=== PATIENT | male | born 1970 | race Two or more races ===

== ENCOUNTER 2024-06-03 12:17 | Inpatient (IN) | payer OTHER ==
[~2024-06-03] VITALS: Ht 185.4 cm; Wt 127.0 kg
--- NOTE | 2024-06-03 14:04 | NUR ---
PACIENTE ALERTA Y ORIENTADO X 3. REFIERE DESDE EL ISAI DOLOR ABDOMINAL, DE EMMA Y SUDORACION. REFIERE FUE ATENDIDO VARIAS VECES VECES EN ER Y TIENE REFERIDO PARA ER DE DRA SHAILESH LEO POR R/O OBSTRUCCION INTESTINAL.
[2024-06-03] MEDS ORDERED: AMOX1TAB5 (14:08)
[2024-06-03] MEDS ORDERED: ZESTORETIC 20-1 EACH (14:08)
[2024-06-03] MEDS ORDERED: ZESTRIL10 M1 (14:08)
[2024-06-03] MEDS ORDERED: DICY20TA PO (14:09)
[2024-06-03] MEDS ORDERED: 0.9 % SODIUM CHLORIDE 1,000 ML IV SCH ×2 (14:30→19:30)
--- NOTE | 2024-06-03 15:44 | NUR ---
PTE MASCULINO EVALUADO POR . SE ORIENTA SOBRE ORDEN DE TX REFIERE COMPRENDER. SE COLECTAN MUESTRAS DE LABORATORIOS Y SE CANALIZA VENA BAJO MEDIDAS ASEPTICAS. SE ADMINISTRAN LIQUIDOS INTRAVENOSOS, JUANITO ORDEN MEDICA. SE NOTIFICA A RADIOLOGIA ESTUDIO PENDIENTE.
[2024-06-03 15:54] LABS: HEMATOCRIT 44.8 % (39.0-48.0); HEMOGLOBIN 15.5 g/dL (13-16.00); MEAN CELL VOLUME 87.9 fL (80.0-100.00); MEAN CORPUSCULAR HEMOGLOBIN 30.3 pg (27.00-32.0); MEAN CORPUSCULAR HGB CONC 34.5 g/dl (32.0-36.0); PLATELET COUNT 304 K/uL (150-450); RED BLOOD COUNT 5.09 M/uL (4.00-6.00); RED CELL DISTRIBUTION WIDTH 13.5 % (11.5-14.5)
[2024-06-03 16:13] LABS: CALCIUM 9.3 mg/dL (8.5-10.1); CREATININE SERUM 0.75 mg/dL (0.70-1.30); GFR 108.94; POTASSIUM 4.41 mEq/L (3.5-5.1)
[2024-06-03] MEDS ORDERED: FAMOTIDINE/PF 20 MG in 0.9 % SODIUM CHLORIDE 8 ML IV PUSH STA (16:53)
[2024-06-03 16:56] LABS: URINE APPEARANCE Clear; URINE BILIRRUBIN Negative (NEGATIVE); URINE BLOOD Negative; URINE COLOR Yellow; URINE GLUCOSE Negative (NEGATIVE); URINE KETONE Trace (NEGATIVE); URINE LEUKOCYTE Negative; URINE NITRATE Negative
[2024-06-03 16:59] LABS: URINE EPITHELIAL CELLS 3.3 uL (0.0-38.8); URINE RBC 2.4 uL (0.0-20.8); URINE WBC 4.7 uL (0.0-23.2)
[2024-06-03] MEDS ORDERED: PIPERACILLIN/TAZOBACTAM SODIUM 3.375 GM VIAL IV ONE (17:00)
[2024-06-03 17:03] LABS: URINE BACTERIA 2.5 uL (0.0-1933); URINE PROTEIN 100 (NEGATIVE)
[2024-06-03 17:38] LABS: ALBUMIN 2.7 gm/dL (3.4-5.0); BILIRUBIN TOTAL 0.85 mg/dL (0.3-1.2); BILIRUBIN,CONJUGATED 0.31 mg/dL (0.0-0.2); BILIRUBIN,UNCONJUGATED 0.54 mg/dL (0.0-0.6); CALCIUM 8.6 mg/dL (8.5-10.1); CREATININE SERUM 0.68 mg/dL (0.70-1.30); GFR 121.98; GLOBULINA 4.4 G/DL (2.4-3.5); POTASSIUM 3.63 mEq/L (3.5-5.1); TOTAL PROTEIN 7.1 gm/dL (6.4-8.2)
[2024-06-03] MEDS ORDERED: PROMETHAZINE HCL 50 MG/ML AMPUL IM ONE (17:45)
[2024-06-03] MEDS ORDERED: MEPERIDINE HCL/PF 50 MG/ML VIAL IM ONE (17:45)
[2024-06-03] MEDS ORDERED: KETOROLAC TROMETHAMINE 15 MG VIAL IU ONE (19:30)
[2024-06-03] MEDS ORDERED: ACETAMINOPHEN 500 MG GEL..CAP PO PRN (19:45)
[2024-06-03] MEDS ORDERED: ONDANSETRON HCL 4 MG in 0.9 % SODIUM CHLORIDE 50 ML IV PRN (19:45)
[2024-06-03] MEDS ORDERED: MORPHINE SULFATE 4 MG/ML CARTRIDGE IV PRN (19:45)
[2024-06-03 21:28] VITALS: BP 134/86; O2SAT 95
[2024-06-03 21:40] VITALS: BP 135/85
[2024-06-03 21:42] LABS: INR 1.2; PARTIAL THROMBOPLASTIN TIME 29.6 SECONDS (22.0-34.0); PROTHROMBIN TIME 12.9 SECONDS (9.0-11.5)
[2024-06-04] MEDS ORDERED: PIPERACILLIN/TAZOBACTAM SODIUM 3.375 GM in DEXTROSE 5 % IN WATER 100 ML IV SCH
[2024-06-04 00:14] VITALS: BP 130/83; O2SAT 92
[2024-06-04 08:12] LABS: HEMATOCRIT 40.9 % (39.0-48.0); HEMOGLOBIN 14.5 g/dL (13-16.00); MEAN CELL VOLUME 86.2 fL (80.0-100.00); MEAN CORPUSCULAR HEMOGLOBIN 30.6 pg (27.00-32.0); MEAN CORPUSCULAR HGB CONC 35.4 g/dl (32.0-36.0); PLATELET COUNT 261 K/uL (150-450); RED BLOOD COUNT 4.75 M/uL (4.00-6.00); RED CELL DISTRIBUTION WIDTH 13.9 % (11.5-14.5)
[2024-06-04 08:34] LABS: ALBUMIN 2.7 gm/dL (3.4-5.0); BILIRUBIN TOTAL 0.69 mg/dL (0.3-1.2); CALCIUM 8.5 mg/dL (8.5-10.1); CREATININE SERUM 0.64 mg/dL (0.70-1.30); GFR 130.82; GLOBULINA 3.4 G/DL (2.4-3.5); MAGNESIUM 2.2 mg/dL (1.8-2.4); PHOSPHOROUS 3.9 mg/dL (2.5-4.9); POTASSIUM 3.8 mEq/L (3.5-5.1); TOTAL PROTEIN 6.1 gm/dL (6.4-8.2)
[2024-06-04] MEDS ORDERED: LISINOPRIL 20 MG TABLET PO SCH (09:00)
[2024-06-04] MEDS ORDERED: ENOXAPARIN SODIUM 40 MG/0.4 ML SYRINGE SUBCUTANEO SCH (09:00)
[2024-06-04] MEDS ORDERED: FAMOTIDINE/PF 20 MG in 0.9 % SODIUM CHLORIDE 8 ML IV PUSH SCH (09:00)
[2024-06-04] MEDS ORDERED: HYDROCHLOROTHIAZIDE 12.5 MG CAPSULE PO SCH (09:00)
[2024-06-04 09:27] VITALS: BP 132/67; O2SAT 96
[2024-06-04 16:46] VITALS: BP 156/78; O2SAT 98
[2024-06-05] VITALS: BP 148/79; O2SAT 96
[2024-06-05 06:44] LABS: HEMATOCRIT 41.7 % (39.0-48.0); HEMOGLOBIN 14.6 g/dL (13-16.00); MEAN CELL VOLUME 86.9 fL (80.0-100.00); MEAN CORPUSCULAR HEMOGLOBIN 30.5 pg (27.00-32.0); PLATELET COUNT 310 K/uL (150-450); RED CELL DISTRIBUTION WIDTH 13.5 % (11.5-14.5)
[2024-06-05 07:16] LABS: ALBUMIN 2.9 gm/dL (3.4-5.0); CALCIUM 8.6 mg/dL (8.5-10.1); CREATININE SERUM 0.74 mg/dL (0.70-1.30); GFR 110.64; GLOBULINA 3.5 G/DL (2.4-3.5); POTASSIUM 3.94 mEq/L (3.5-5.1); TOTAL PROTEIN 6.4 gm/dL (6.4-8.2)
[2024-06-05] MEDS ORDERED: MOXIFLOXACIN H400 MG PO (10:50)
[2024-06-05] MEDS ORDERED: INTESTINEX680 M1 PO (10:50)
[2024-06-05] MEDS ORDERED: COLACE100 MG PO (10:50)
[2024-06-05] MEDS ORDERED: TRAM1TAB98 PO (10:51)
[2024-06-05] MEDS ORDERED: PANTOPRAZOLE SO20 MG PO (10:51)
[2024-06-05] MEDS ORDERED: HYDROCHLOROTH12.5 MG PO (10:52)
[2024-06-05] MEDS ORDERED: LEVSIN0.125 MG PO (10:52)
[2024-06-05] MEDS ORDERED: LISINOPRIL20 MG PO (10:52)
== END 2024-06-05 13:08 | disposition home or self-care (01) | DRG 446 ==
LOC: ER 12:19 → SURH 20:26
PROVIDERS: Emergency Medicine; General Practice; ADMIT Internal Medicine; ATTEND Internal Medicine
PROC: BW21YZZ Computerized Tomography (CT Scan) of Abdomen and Pelvis using Other Contrast (ICD-10-PCS; principal; 2024-06-03)
PROC: BW40ZZZ Ultrasonography of Abdomen (ICD-10-PCS; 2024-06-03)
PROC: BF37ZZZ Magnetic Resonance Imaging (MRI) of Pancreas (ICD-10-PCS; 2024-06-04)
DX: K80.10 Calculus of gallbladder with chronic cholecystitis without obstruction (principal); I10 Essential (primary) hypertension

== ENCOUNTER 2024-07-29 06:20 | Inpatient (IN) | payer OTHER ==
[2024-07-23 08:50] LABS: URINE APPEARANCE Clear; URINE BILIRRUBIN Negative (NEGATIVE); URINE BLOOD Negative; URINE COLOR Yellow; URINE GLUCOSE Negative (NEGATIVE); URINE KETONE Negative (NEGATIVE); URINE LEUKOCYTE Negative; URINE NITRATE Negative; URINE PROTEIN 30 (NEGATIVE); URINE UROBILINOGEN 0.2 E.U./dl
[2024-07-23 08:54] LABS: URINE EPITHELIAL CELLS 1.5 uL (0.0-38.8); URINE WBC 3.6 uL (0.0-23.2)
[2024-07-23 08:59] LABS: HEMATOCRIT 46.8 % (39.0-48.0); HEMOGLOBIN 16.1 g/dL (13-16.00); MEAN CELL VOLUME 86.3 fL (80.0-100.00); MEAN CORPUSCULAR HEMOGLOBIN 29.7 pg (27.00-32.0); MEAN CORPUSCULAR HGB CONC 34.4 g/dl (32.0-36.0); PLATELET COUNT 246 K/uL (150-450); RED BLOOD COUNT 5.43 M/uL (4.00-6.00); RED CELL DISTRIBUTION WIDTH 13.8 % (11.5-14.5)
[2024-07-23 09:00] LABS: URINE BACTERIA 3.6 uL (0.0-1933)
[2024-07-23 09:11] LABS: INR 1.01; PARTIAL THROMBOPLASTIN TIME 28.8 SECONDS (22.0-34.0)
[2024-07-23 09:57] LABS: ALBUMIN 3.9 gm/dL (3.4-5.0); BILIRUBIN TOTAL 1.01 mg/dL (0.3-1.2); CALCIUM 9.2 mg/dL (8.5-10.1); CREATININE SERUM 0.69 mg/dL (0.70-1.30); GFR 119.94; GLOBULINA 3.6 G/DL (2.4-3.5); POTASSIUM 4.29 mEq/L (3.5-5.1); TOTAL PROTEIN 7.5 gm/dL (6.4-8.2)
[~2024-07-29] VITALS: Ht 185.4 cm; Wt 119.7 kg
[~2024-07-29 06:20] MED LIST: AMOX1TAB5; COLACE100 MG PO; DICY20TA PO; HYDROCHLOROTH12.5 MG PO; INTESTINEX680 M1 PO; LEVSIN0.125 MG PO; LISINOPRIL20 MG PO; MOXIFLOXACIN H400 MG PO; PANTOPRAZOLE SO20 MG PO; TAMS0.4C PO; TRAM1TAB98 PO; ZESTORETIC 20-1 EACH; ZESTRIL10 M1
[2024-07-29] MEDS ORDERED: CEFAZOLIN SODIUM 1,000 MG VIAL ONE (10:21)
[2024-07-29] MEDS ORDERED: ENOXAPARIN SODIUM 40 MG/0.4 ML SYRINGE SUBCUTANEO ONE (10:22)
[2024-07-29] MEDS ORDERED: SUGAMMADEX SODIUM 200 MG/2 ML VIAL IV ONE (11:53)
[2024-07-29] MEDS ORDERED: ONDANSETRON HCL 2 MG/ML VIAL IV PRN (14:45)
[2024-07-29] MEDS ORDERED: RINGERS SOLUTION,LACTATED 1,000 ML IV SCH (14:45)
[2024-07-29] MEDS ORDERED: MORPHINE SULFATE 4 MG/ML VIAL IV PRN (14:45)
[2024-07-29] MEDS ORDERED: FAMOTIDINE/PF 20 MG/2 ML VIAL IV SCH (14:51)
[2024-07-29] MEDS ORDERED: GABAPENTIN 300 MG CAPSULE PO SCH (14:52)
[2024-07-29] MEDS ORDERED: ACETAMINOPHEN 325 MG TABLET PO SCH (14:53)
[2024-07-29] MEDS ORDERED: FAMOTIDINE/PF 20 MG/2 ML VIAL ONE (15:23)
[2024-07-29] MEDS ORDERED: MORPHINE SULFATE 4 MG/ML VIAL IV ONE ×2 (15:45→16:40)
[2024-07-29 16:01] LABS: HEMATOCRIT 48.6 % (39.0-48.0); MEAN CELL VOLUME 85.4 fL (80.0-100.00); MEAN CORPUSCULAR HEMOGLOBIN 29.9 pg (27.00-32.0); MEAN CORPUSCULAR HGB CONC 35.1 g/dl (32.0-36.0); PLATELET COUNT 224 K/uL (150-450)
[2024-07-29 16:15] LABS: CALCIUM 8.9 mg/dL (8.5-10.1); CREATININE SERUM 0.83 mg/dL (0.70-1.30); GFR 96.91; MAGNESIUM 1.7 mg/dL (1.8-2.4); POTASSIUM 4.25 mEq/L (3.5-5.1)
[2024-07-29 16:19] LABS: ALBUMIN 4.1 gm/dL (3.4-5.0); BILIRUBIN TOTAL 0.57 mg/dL (0.3-1.2); CALCIUM 8.8 mg/dL (8.5-10.1); CREATININE SERUM 0.84 mg/dL (0.70-1.30); GFR 95.58; GLOBULINA 3.4 G/DL (2.4-3.5); POTASSIUM 3.97 mEq/L (3.5-5.1); TOTAL PROTEIN 7.5 gm/dL (6.4-8.2)
[2024-07-29 17:30] VITALS: BP 156/77; O2SAT 95
[2024-07-30] VITALS: BP 136/70; O2SAT 95
[2024-07-30 06:52] LABS: HEMATOCRIT 47.1 % (39.0-48.0); HEMOGLOBIN 16.3 g/dL (13-16.00); MEAN CELL VOLUME 85.6 fL (80.0-100.00); MEAN CORPUSCULAR HEMOGLOBIN 29.7 pg (27.00-32.0); MEAN CORPUSCULAR HGB CONC 34.6 g/dl (32.0-36.0); PLATELET COUNT 226 K/uL (150-450); RED CELL DISTRIBUTION WIDTH 13.5 % (11.5-14.5)
[2024-07-30 07:17] LABS: ALBUMIN 3.2 gm/dL (3.4-5.0); CALCIUM 8.6 mg/dL (8.5-10.1); CREATININE SERUM 0.65 mg/dL (0.70-1.30); GFR 128.5; MAGNESIUM 1.6 mg/dL (1.8-2.4); POTASSIUM 3.74 mEq/L (3.5-5.1)
[2024-07-30 08:00] VITALS: BP 142/76; O2SAT 96
[2024-07-30] MEDS ORDERED: MAGNESIUM SULFATE IN WATER 4 GM/100 ML PIGGYBACK IV SCH (08:30)
[2024-07-30] MEDS ORDERED: LISINOPRIL 20 MG TABLET PO SCH (09:00)
[2024-07-30] MEDS ORDERED: PIPERACILLIN/TAZOBACTAM SODIUM 4.5 GM VIAL IV SCH (09:00)
[2024-07-30] MEDS ORDERED: ENOXAPARIN SODIUM 40 MG/0.4 ML SYRINGE SUBCUTANEO SCH (17:00)
[2024-07-30] MEDS ORDERED: IOVERSOL 320 MG/ML - 50 ML VIAL IV ONE (18:00)
[2024-07-30] MEDS ORDERED: FAMOTIDINE/PF 20 MG/2 ML VIAL ONE (20:42)
[2024-07-31 00:30] VITALS: BP 142/75; O2SAT 99
[2024-07-31 08:23] VITALS: BP 143/77; O2SAT 95
[2024-07-31] MEDS ORDERED: SIMETHICONE 125 MG CAPSULE PO SCH (09:00)
[2024-07-31 11:34] LABS: HEMATOCRIT 46.1 % (39.0-48.0); HEMOGLOBIN 16.2 g/dL (13-16.00); MEAN CELL VOLUME 85.6 fL (80.0-100.00); MEAN CORPUSCULAR HGB CONC 35.1 g/dl (32.0-36.0); PLATELET COUNT 220 K/uL (150-450); RED BLOOD COUNT 5.39 M/uL (4.00-6.00); RED CELL DISTRIBUTION WIDTH 13.8 % (11.5-14.5)
[2024-07-31 12:07] LABS: ALBUMIN 3.2 gm/dL (3.4-5.0); BILIRUBIN TOTAL 1.32 mg/dL (0.3-1.2); CALCIUM 8.1 mg/dL (8.5-10.1); CREATININE SERUM 0.76 mg/dL (0.70-1.30); GFR 107.29; GLOBULINA 3.3 G/DL (2.4-3.5); MAGNESIUM 2.1 mg/dL (1.8-2.4); POTASSIUM 3.83 mEq/L (3.5-5.1); TOTAL PROTEIN 6.5 gm/dL (6.4-8.2)
[2024-07-31] MEDS ORDERED: RINGERS SOLUTION,LACTATED 1,000 ML IV SCH (14:45)
[2024-07-31 16:00] VITALS: BP 150/83; O2SAT 96
[2024-08-01 01:20] VITALS: BP 121/65; O2SAT 98
[2024-08-01 08:00] VITALS: BP 152/87; O2SAT 97
== END 2024-08-01 11:10 | disposition home or self-care (01) | DRG 418 ==
LOC: CIR.AMB 06:20 → O/R 15:24 → SURH 15:24
PROVIDERS: ADMIT Student in an Organized Health Care Education/Training Program; ATTEND Student in an Organized Health Care Education/Training Program
PROC: 0DN94ZZ Release Duodenum, Percutaneous Endoscopic Approach (ICD-10-PCS; 2024-07-29)
PROC: 0DNL4ZZ Release Transverse Colon, Percutaneous Endoscopic Approach (ICD-10-PCS; 2024-07-29)
PROC: 8E0W4CZ Robotic Assisted Procedure of Trunk Region, Percutaneous Endoscopic Approach (ICD-10-PCS; 2024-07-29)
PROC: 0FT44ZZ Resection of Gallbladder, Percutaneous Endoscopic Approach (ICD-10-PCS; principal; 2024-07-29 08:20)
PROC: 0F798DZ Dilation of Common Bile Duct with Intraluminal Device, Via Natural or Artificial Opening Endoscopic (ICD-10-PCS; 2024-07-30)
PROC: BF10YZZ Fluoroscopy of Bile Ducts using Other Contrast (ICD-10-PCS; 2024-07-30)
DX: K80.12 Calculus of gallbladder with acute and chronic cholecystitis without obstruction (principal); K91.81 Other intraoperative complications of digestive system; K82.A1 Gangrene of gallbladder in cholecystitis; K66.0 Peritoneal adhesions (postprocedural) (postinfection); K82.8 Other specified diseases of gallbladder; E83.42 Hypomagnesemia
CPT/HCPCS: 47562; 44180; 43274; 74328; S2900

== ENCOUNTER 2024-08-16 15:26 | Inpatient (IN) | payer OTHER ==
[~2024-08-16] VITALS: Ht 185.4 cm; Wt 117.9 kg
--- NOTE | 2024-08-16 15:44 | NUR ---
SE RECIBE PTE MASCULINO ALERTA Y ORIENTADO X3 REFIERE DOLOR ABDOMINAL, NAUSEAS Y 3 EPISODIOS DE VOMITOS DESDE HUGH. PTE INDICA FUE OPERADO DE VESICULA POR DRA.BEATRIZ WILSONOA EN EL MES DE ENERO. SE MARY S/V Y SE UBICA.
[2024-08-16] MEDS ORDERED: FAMOTIDINE/PF 20 MG in 0.9 % SODIUM CHLORIDE 8 ML IV PUSH STA (16:33)
[2024-08-16] MEDS ORDERED: METRONIDAZOLE/SODIUM CHLORIDE 500 MG/100 ML PIGGYBACK IV ONE ×2 (16:45→16:56)
[2024-08-16] MEDS ORDERED: ONDANSETRON HCL 2 MG/ML VIAL IV ONE (16:45)
[2024-08-16] MEDS ORDERED: 0.9 % SODIUM CHLORIDE 1,000 ML IV SCH ×2 (16:45)
[2024-08-16] MEDS ORDERED: HYOSCYAMINE SULFATE 0.125 MG TAB.SUBL SL ONE (16:45)
[2024-08-16] MEDS ORDERED: FAMOTIDINE/PF 20 MG/2 ML VIAL ONE (16:56)
[2024-08-16] MEDS ORDERED: ONDANSETRON HCL 2 MG/ML VIAL ONE (16:56)
[2024-08-16] MEDS ORDERED: HYOSCYAMINE SULFATE 0.125 MG TAB.SUBL ONE (16:56)
[2024-08-16 17:31] LABS: HEMATOCRIT 49.2 % (39.0-48.0); HEMOGLOBIN 17.3 g/dL (13-16.00); MEAN CELL VOLUME 85.5 fL (80.0-100.00); MEAN CORPUSCULAR HGB CONC 35.1 g/dl (32.0-36.0); PLATELET COUNT 293 K/uL (150-450); RED BLOOD COUNT 5.75 M/uL (4.00-6.00)
--- NOTE | 2024-08-16 17:34 | NUR ---
SE EDUCA SOBRE TX MEDICO, COURTNEY REFIERE ENTENDER. SE EXTRAEN MUESTRAS DE LABORATORIO Y SE ADMINISTRAN MEDICAMENTOS JUANITO ORDEN MEDICA. PENDIENTE CT.
[2024-08-16 18:26] LABS: ALBUMIN 3.6 gm/dL (3.4-5.0); BILIRUBIN TOTAL 0.79 mg/dL (0.3-1.2); BILIRUBIN,CONJUGATED 0.22 mg/dL (0.0-0.2); BILIRUBIN,UNCONJUGATED 0.57 mg/dL (0.0-0.6); CALCIUM 8.9 mg/dL (8.5-10.1); CREATININE SERUM 0.7 mg/dL (0.70-1.30); GFR 117.52; POTASSIUM 3.91 mEq/L (3.5-5.1); TOTAL PROTEIN 7.6 gm/dL (6.4-8.2)
[2024-08-16] MEDS ORDERED: SODIUM CHLORIDE 0.45 % 1,000 ML IV SCH (21:30)
[2024-08-17 00:01] VITALS: BP 131/84; O2SAT 95
[2024-08-17 05:46] LABS: INR 1.1; PARTIAL THROMBOPLASTIN TIME 30.5 SECONDS (22.0-34.0); PROTHROMBIN TIME 11.9 SECONDS (9.0-11.5)
[2024-08-17 07:28] VITALS: BP 120/77; O2SAT 96
[2024-08-17] MEDS ORDERED: LISINOPRIL 20 MG TABLET PO SCH (09:00)
[2024-08-17] MEDS ORDERED: CIPROFLOXACIN IN 5 % DEXTROSE 400 MG/200 ML PIGGYBAG IV SCH (09:00)
[2024-08-17] MEDS ORDERED: FAMOTIDINE/PF 20 MG/2 ML VIAL IV SCH (09:00)
[2024-08-17] MEDS ORDERED: METRONIDAZOLE/SODIUM CHLORIDE 500 MG/100 ML PIGGYBACK IV SCH (09:00)
[2024-08-17] MEDS ORDERED: ONDANSETRON HCL 2 MG/ML VIAL IV PRN (09:00)
[2024-08-17] MEDS ORDERED: RINGERS SOLUTION,LACTATED 1,000 ML IV SCH (09:00)
[2024-08-17 10:08] LABS: PH,URINE 5.5 (5.0-8.0); URINE APPEARANCE Cloudy; URINE BILIRRUBIN Negative (NEGATIVE); URINE BLOOD Negative; URINE COLOR Dark Yellow; URINE GLUCOSE Negative (NEGATIVE); URINE KETONE 15 (NEGATIVE); URINE LEUKOCYTE Trace; URINE NITRATE Negative; URINE PROTEIN 30 (NEGATIVE)
[2024-08-17 10:12] LABS: URINE BACTERIA 13.4 uL (0.0-1933); URINE EPITHELIAL CELLS 6.1 uL (0.0-38.8); URINE RBC 6.7 uL (0.0-20.8); URINE WBC 67.1 uL (0.0-23.2)
[2024-08-17 10:39] LABS: URINE MUCUS MODERATE; URINE YEAST NEGATIVE /hpf
[2024-08-18] MEDS ORDERED: ENOXAPARIN SODIUM 40 MG/0.4 ML SYRINGE SUBCUTANEO SCH (17:00)
== END 2024-08-17 15:00 | disposition home or self-care (01) | DRG 392 ==
LOC: ER 15:29 → SEC-K 22:08 → SURG 08-17 09:42
PROVIDERS: General Practice; ADMIT Student in an Organized Health Care Education/Training Program; ATTEND Student in an Organized Health Care Education/Training Program
PROC: BW21ZZZ Computerized Tomography (CT Scan) of Abdomen and Pelvis (ICD-10-PCS; principal; 2024-08-16)
DX: K52.9 Noninfective gastroenteritis and colitis, unspecified (principal); R10.9 Unspecified abdominal pain; R11.2 Nausea with vomiting, unspecified

== ENCOUNTER 2024-09-16 07:22 | Day surgery (SDC) | payer OTHER ==
[2024-09-03 14:34] LABS: HEMATOCRIT 46.1 % (39.0-48.0); HEMOGLOBIN 15.6 g/dL (13-16.00); MEAN CELL VOLUME 86.1 fL (80.0-100.00); MEAN CORPUSCULAR HEMOGLOBIN 29.1 pg (27.00-32.0); MEAN CORPUSCULAR HGB CONC 33.8 g/dl (32.0-36.0); PLATELET COUNT 255 K/uL (150-450); RED BLOOD COUNT 5.36 M/uL (4.00-6.00); RED CELL DISTRIBUTION WIDTH 13.9 % (11.5-14.5)
[2024-09-03 14:54] LABS: PARTIAL THROMBOPLASTIN TIME 30.2 SECONDS (22.0-34.0); PROTHROMBIN TIME 10.9 SECONDS (9.0-11.5)
[2024-09-03 15:12] LABS: ALBUMIN 3.9 gm/dL (3.4-5.0); BILIRUBIN TOTAL 0.51 mg/dL (0.3-1.2); CALCIUM 9.3 mg/dL (8.5-10.1); CREATININE SERUM 0.75 mg/dL (0.70-1.30); GFR 108.53; GLOBULINA 3.6 G/DL (2.4-3.5); POTASSIUM 4.24 mEq/L (3.5-5.1); TOTAL PROTEIN 7.5 gm/dL (6.4-8.2)
[2024-09-16] MEDS ORDERED: IOVERSOL 320 MG/ML - 100 ML VIAL IV ONE (19:15)
== END 2024-09-16 21:15 | disposition home or self-care (01) ==
LOC: CIR.AMB 07:22 → AMB-ERCP 12:15 → AMB-ENDOS 13:15 → AMB-ERCP 13:15 → CIR.AMB 13:15
PROVIDERS: ATTEND Internal Medicine
DX: T85.590A Other mechanical complication of bile duct prosthesis, initial encounter (principal); K83.2 Perforation of bile duct